=== PATIENT | male | born 2005 | race Caucasian/White ===

== ENCOUNTER 2025-06-01 11:17 | Emergency (ER) | payer OTHER ==
[~2025-06-01] VITALS: Ht 177.8 cm; Wt 75.0 kg
[2025-06-01 11:19] VITALS: O2SAT 100
[2025-06-01] MEDS: LACTATED RINGERS 1,000 ML IV SCH (11:37)
[2025-06-01 12:11] LABS: BASOPHILS % 0.6 % (0.0-2.0); EOSINOPHILS % 3.4 % (0.0-5.0); HEMATOCRIT. 39.8 % (42.0-52.0); HEMOGLOBIN. 13.4 g/dL (14.0-18.0); LYMPHOCYTES % 26.1 % (20.0-50.0); MEAN PLATELET VOLUME 7.5 fl (7.4-10.4); MONOCYTES % 8.3 % (2.0-8.0); NEUTROPHILS % 61.6 % (40.0-76.0); PLATELET 233 x1000/uL (130-400); RED BLOOD CELL COUNT 4.47 mill/uL (4.7-6.1); RED CELL DISTRIBUTION WIDTH 13.0 % (11.6-14.6)
[2025-06-01 12:25] LABS: CREATININE 1.0 mg/dL (0.6-1.3); UREA NITROGEN BLOOD 8 mg/dL (9-23)
[2025-06-01 12:27] LABS: TROPONIN I HIGH SENSITIVITY < 4 ng/L (3.0-53)
[2025-06-01 14:23] VITALS: BP 133/72; PULSE 80; RESP 14; TEMP 36.6; O2SAT 98
== END 2025-06-01 14:26 | disposition home or self-care (01) ==
LOC: ER 12:01 → EDBD 12:01 → ER 14:26 → CMPBEDREQ 06-02 07:34
DX: S09.90XA Unspecified injury of head, initial encounter (principal); R55 Syncope and collapse; I95.9 Hypotension, unspecified; X58.XXXA Exposure to other specified factors, initial encounter; Y93.89 Activity, other specified; Y92.89 Other specified places as the place of occurrence of the external cause; Y99.8 Other external cause status
CPT/HCPCS: 36415; 71045; 76604; 80048; 84484; 85025; 93005; 93880; 99285